=== PATIENT | female | born 1940 | race Caucasian/White ===

== ENCOUNTER 2017-05-23 16:27 | Inpatient (IN) ==
[2017-05-23] MEDS ORDERED: DOCUSATE SODIUM 100 MG CAPSULE PO PRN (16:46)
[2017-05-23] MEDS ORDERED: MORPHINE 2 MG/1 ML SYRINGE IV PRN (16:46)
[2017-05-23] MEDS ORDERED: BISACODYL 5 MG TABLET PO PRN (16:46)
[2017-05-23] MEDS ORDERED: ONDANSETRON 4 MG/2 ML VIAL IV PRN (16:46)
[2017-05-23] MEDS ORDERED: MAGNESIUM SULF RIDER 4 GM in PREMIX 1 EACH IV PRN (16:46)
[2017-05-23] MEDS ORDERED: MAGNESIUM SULF RIDER 2 GM in PREMIX 1 EACH IV PRN (16:46)
--- NOTE | 2017-05-23 19:54 | XRay Report ---
History: Shortness of breath Date: 05/23/2017 Study: Chest x-ray AP portable Comparison exam: No previous similar available There is cardiomegaly. There is a suspected moderate-sized hiatal hernia in the retrocardiac region. The pulmonary vasculature is slightly prominent. There is mild aortic arch calcification. There are some scattered emphysematous changes. There is no venkata consolidated pneumonia. There is an equivocal small left pleural effusion. A left subclavian dual-lead transvenous pacemaker is present. Impression: Cardiomegaly and borderline CHF appearance. Pacemaker PROCEDURE INTERPRETED AT [facility] DEPARTMENT OF RADIOLOGY Final Report Signed by: Dr. Shwetha Small
[2017-05-24 04:20] LABS: Apearance,Urine Slightly Hazy (Clear); Bacteria,Urine Few /HPF (Few); Bilirubin,Urine Negative (Negative); Blood, Urine Negative (Negative); Glucose,Urine (UA) Negative (Negative); Ketones,Urine Negative (Negative); Mucus,Urine Occasional /LPF (Occasional); Nitrite,Urine Positive (Negative); Protein,Urine Negative; RBC,Urine 3 /HPF (0-4); Squamous Epithelial Cell,Urine Occasional /HPF (0-10); Urine Color Yellow (Yellow); Urine Specific Gravity 1.006 (1.001-1.035); Urine Urobilinogen < 2.0 EU/DL (0.2-1.0); WBC,Urine 32 /HPF (0-6)
[2017-05-24 05:43] LABS: Basophils # 0.1 10*3/uL (0.0-0.2); Basophils % 0.8 % (0.0-0.8); Eosinophils # 0.1 10*3/uL (0.0-0.87); Eosinophils % 0.9 % (0.00-10.9); Hematocrit 39.5 VOL% (35.7-47.0); Hemoglobin 13.6 GM/DL (12.0-16.0); Immature Granulocytes % 0.8 %; Immature Granulocytes Absolute 0.06 #; Lymphocytes # 1.7 10*3/uL (1.4-4.0); Mean Corpuscular HGB Conc 34.4 GM/DL (32-36); Mean Corpuscular Hemoglobin 33 PG (27-34); Mean Corpuscular Volume 97.1 FL (87-102); Mean Platelet Volume 9.3 FL (9.6-12.0); Monocytes # 1.1 10*3/uL (0.11-0.8); Monocytes % 13.9 % (1.7-12.7); Neutrophils # 4.8 10*3/uL (1.4-7.4); Neutrophils % 61.6 % (38.7-73.9); Platelet Count 232 T/CUMM (130-400); Red Blood Count 4.07 MC/CUMM (3.8-5.5); Red Cell Distribution Width 13.4 % (9.3-17.3); White Blood Count 7.9 T/CUMM (4-12)
[2017-05-24 06:22] LABS: Albumin 2.9 G/DL (3.4-5.0); Bilirubin,Total 1.7 MG/DL (0.2-1.0); Calcium 8.6 MG/DL (8.5-10.1); Osmolality,Calculated 277.7 MOS/KG (273-304); Potassium 3.8 MMOL/L (3.5-5.1); Risk Ratio 2.83; Thyroid Stimulating Hormone 1.87 uIU/ml (0.358-3.74); Total Protein 6.1 G/DL (6.4-8.3); VLDL CHOLESTEROL 15.6 MG/DL
--- NOTE | 2017-05-24 08:43 | EKG Report ---
Stationary ECG Study [facility] Test Date: 05/24/2017 7:48:33 AM Pat Name: NYASIA VILLAGRAN Department: Room: 291 Gender: F Telegraphic Instrument Supervisor: ABI : 1940 Requested by: Helen Stevens Order Number: [id number] Reading MD: EVA BEAL Intervals [place] Rate: 124 P: 999 SC: 0 QRS: 56 QRSD: 78 T: -89 QT: 245 QTc: 318 Interpretive Statements ATRIAL FLUTTER/TACHYCARDIA WITH RAPID VENTRICULAR RESPONSE MARKED ST DEPRESSION, CONSIDER SUBENDOCARDIAL INJURY INTERPRETATION BASED ON A DEFAULT AGE OF 40 YEARS Electronically Signed On 05-24-17 17:07:51 CDT by EVA BEAL [email or web address]
[2017-05-24] MEDS ORDERED: DILTIAZEM 50 MG/10 ML VIAL IV ONE (08:44)
[2017-05-24] MEDS ORDERED: CIPROFLOXACIN 500 MG TABLET PO SCH (09:00)
[2017-05-24] MEDS ORDERED: DILTIAZEM INJ 100 MG in SODIUM CHLORIDE 0.9% 100 ML IV SCH (09:00)
[2017-05-24] MEDS ORDERED: ENOXAPARIN 80 MG/0.8 ML SYRINGE SUBCUT SCH (09:00)
[2017-05-24 09:42] LABS: INR 1.3; PT Patient Result 14.3 SECS
[2017-05-24] MEDS: PREGABALIN 25 MG CAPSULE PO SCH ×3 (09:43→20:43)
[2017-05-24] MEDS: PANTOPRAZOLE 40 MG TABLET PO SCH (09:44)
--- NOTE | 2017-05-24 09:53 | EKG Report ---
Stationary ECG Study [facility] Test Date: 05/24/2017 9:52:37 AM Pat Name: NYASIA VILLAGRAN Department: Room: 291 Gender: F Brands Editor: : 1940 Requested by: Helen Stevens Order Number: [id number] Reading MD: EVA BEAL Intervals [place] Rate: 125 P: 999 [place]: 0 QRS: 85 QRSD: 86 T: -88 QT: 238 QTc: 312 Interpretive Statements ATRIAL FLUTTER/TACHYCARDIA WITH RAPID VENTRICULAR RESPONSE ST DEVIATION AND MODERATE T-WAVE ABNORMALITY, CONSIDER LATERAL ISCHEMIA ST DEVIATION AND MODERATE T-WAVE ABNORMALITY, CONSIDER INFERIOR ISCHEMIA Electronically Signed On 05-24-17 17:10:45 CDT by EVA BEAL [id number]
[2017-05-24 10:13] LABS: Free T4 (Free Thyroxine) 1.45 NG/DL (0.76-1.46); Thyroid Stimulating Hormone 1.83 uIU/ml (0.358-3.74)
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
[2017-05-24] MEDS: NEOMYCIN LEFT EYE SCH ×3 (10:53→17:13)
[2017-05-24] MEDS: [UNRECOGNIZED DRUG - OTHER] LEFT EYE SCH ×3 (10:53→17:13)
[2017-05-24] MEDS: BACITRACIN LEFT EYE SCH ×3 (10:53→17:13)
[2017-05-24 11:00] LABS: Albumin 2.9 G/DL (3.4-5.0); Bilirubin,Direct 0.2 MG/DL (0.0-0.20); Bilirubin,Indirect 0.4 MG/DL (0.0-1.0); Bilirubin,Total 0.6 MG/DL (0.2-1.0); Total Protein 6.1 G/DL (6.4-8.3)
[2017-05-24] MEDS: SOTALOL 80 MG TABLET PO SCH ×2 (11:03→20:44)
[2017-05-24] MEDS: NITROFURANTOIN MACRO/MONO 100 MG CAPSULE PO SCH ×2 (11:04→20:44)
[2017-05-24] MEDS: DILTIAZEM CD 120 MG CAPSULE PO SCH ×2 (11:05→20:43)
[2017-05-24] MEDS: WARFARIN 7.5 MG TABLET PO SCH (17:12)
--- NOTE | 2017-05-24 17:15 | Pain Management Progress Note ---
Pain - Subjective Interval history: Ms Carrizales is 77 yo from [place] transferred for care of A Fib with rapid ventricular response. Consult: symptomatic post herpetic neuralgia Pt had shingles left side scalp & face 1 month ago. treated with antviral & pain medicine. Vesicles are healed. pt complains of severe burning pain. Pt had received Saltese 5 ~1 hour & Lyrica 25 mg ~15 min prior to my visit. Pain tolerable. Impression: Post herpetic neuralgia Plan: 1. continue Norco5 q4 hrs prn. 2. Continue Lyrica 25 mg tid. If pt tolerates Increase Lyrica to 50 mg tid 9 AM. 3. Will follow. Exam - Constitutional Vitals: Period Temp Pulse Resp BP Sys/Linn Pulse Ox Last 24 Hr 97.0 F-97.8 F 73-126 16-20 115-163/60-101 94-98 Results - Labs CBC & BMP: 05/24/17 05:06 05/24/17 05:06
[2017-05-24] MEDS: ACETAMINOPHEN 325 MG TABLET PO PRN (19:56)
[2017-05-24] MEDS: ENOXAPARIN 80 MG/0.8 ML SYRINGE SUBCUT SCH (20:42)
[2017-05-24] MEDS: ZALEPLON 5 MG CAPSULE PO PRN (20:43)
[2017-05-25] MEDS: [UNRECOGNIZED DRUG - OTHER] LEFT EYE SCH ×4 (00:51→18:25)
[2017-05-25] MEDS: NEOMYCIN LEFT EYE SCH ×4 (00:51→18:25)
[2017-05-25] MEDS: BACITRACIN LEFT EYE SCH ×4 (00:51→18:25)
[2017-05-25 04:12] LABS: Basophils % 0.4 % (0.0-0.8); Eosinophils # 0.1 10*3/uL (0.0-0.87); Eosinophils % 1.3 % (0.00-10.9); Hematocrit 38.9 VOL% (35.7-47.0); Hemoglobin 13.5 GM/DL (12.0-16.0); Immature Granulocytes % 0.9 %; Immature Granulocytes Absolute 0.06 #; Lymphocytes # 1.8 10*3/uL (1.4-4.0); Lymphocytes % 26.7 % (21.3-54.2); Mean Corpuscular HGB Conc 34.7 GM/DL (32-36); Mean Corpuscular Hemoglobin 33 PG (27-34); Mean Platelet Volume 9.1 FL (9.6-12.0); Monocytes # 0.9 10*3/uL (0.11-0.8); Monocytes % 13.8 % (1.7-12.7); Neutrophils # 3.9 10*3/uL (1.4-7.4); Neutrophils % 56.9 % (38.7-73.9); Platelet Count 224 T/CUMM (130-400); Red Blood Count 4.05 MC/CUMM (3.8-5.5); Red Cell Distribution Width 13.4 % (9.3-17.3); White Blood Count 6.8 T/CUMM (4-12)
[2017-05-25 04:40] LABS: INR 1.2; PT Patient Result 13.1 SECS
[2017-05-25 04:42] LABS: Calcium 8.5 MG/DL (8.5-10.1); Magnesium 2.4 MG/DL (1.8-2.4); Osmolality,Calculated 281.4 MOS/KG (273-304); Potassium 3.6 MMOL/L (3.5-5.1)
[2017-05-25] MEDS: ENOXAPARIN 80 MG/0.8 ML SYRINGE SUBCUT SCH ×2 (08:17→20:47)
--- NOTE | 2017-05-25 08:25 | EKG Report ---
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
[2017-05-25] MEDS: DILTIAZEM CD 120 MG CAPSULE PO SCH ×2 (09:11→20:47)
[2017-05-25] MEDS: PREGABALIN 25 MG CAPSULE PO SCH ×3 (09:11→20:48)
[2017-05-25] MEDS: SOTALOL 80 MG TABLET PO SCH ×2 (09:11→20:48)
[2017-05-25] MEDS: PANTOPRAZOLE 40 MG TABLET PO SCH (09:12)
[2017-05-25] MEDS: NITROFURANTOIN MACRO/MONO 100 MG CAPSULE PO SCH ×2 (09:12→20:47)
--- NOTE | 2017-05-25 10:35 | Cardiology Progress Note ---
Assessment and Plan (1) Atrial fibrillation with rapid ventricular response Status: Acute Assessment and plan: 77-year-old female, from [place]. History of symptomatic atrial fibrillation, atrial flutter, status post dual-chamber pacemaker implantation. She was transferred from [facility] by Dr. Gilmore, due to uncontrolled heart rate, symptomatic RVR. She is anticoagulated with Coumadin, she thinks her INRs were high recently but no documentation. -Continue sotalol 80 mg twice daily, Cardizem CD 120 mg twice daily. Still RVR , minimally symptomatic -Plan to proceed with EP study/ablation Saturday. Plan for general anesthesia, ANIA. -Daily EKG, lytes, keep on telemetry -Continue anticoagulation with Coumadin, LMW H bridging. Follow INR daily. -UTI. Continue nitrofurantoin, 3 day duration -Pain management consult appreciated, she was highly symptomatic from postherpetic neuralgia. Current Visit: Yes (2) Hypertension Status: Chronic Current Visit: Yes (3) Dyslipidemia Status: Chronic Current Visit: Yes (4) Postherpetic neuralgia Status: Acute Current Visit: Yes Cardiology - PN: Subj Interval history: She is still in atrial flutter, heart rate around 140 beats pain. No significant QTc prolongation or proarrhythmia with sotalol. Postherpetic neuralgia, followed by pain management Exam (Progress Note) - Constitutional Vitals: Period Temp Pulse Resp BP Sys/Linn Pulse Ox Last 24 Hr 97 F-97.7 F 76-123 16-20 122-162/77-92 95-98 General appearance: normal weight, over weight - Head Head exam: Present: normal inspection - Eye Eye exam: Absent: conjunctival injection, scleral icterus Pupils: Absent: dilated - ENT ENT exam: Present: normal external ear exam - Neck Neck exam: Present: normal inspection - Respiratory Respiratory exam: Present: clear to auscultation bilaterally. Absent: chest wall tenderness - Cardiovascular Cardiovascular exam: Present: systolic murmur, tachycardia. Absent: JVD - GI/Abdominal GI/Abdominal exam: Present: normal bowel sounds. Absent: distended - Extremities Exam Extremities exam: Present: normal inspection, normal capillary refill. Absent: edema - Back Exam Back exam: Present: normal inspection - Neurological Exam Neurological exam: Present: alert, oriented X3 - Psychiatric Psychiatric exam: Present: normal affect, normal mood - Skin Skin exam: Present: normal color, warm. Absent: cyanosis Result/EKG - Labs CBC & BMP: 05/25/17 03:53 05/25/17 03:53 Lab Results: I have reviewed the past 24 hour labs Labs: Laboratory Results - last 24 hr 05/24/17 05/25/17 05/25/17 05:05 03:53 03:53 WBC 6.8 RBC 4.05 Hgb 13.5 Hct 38.9 MCV 96.0 MCH 33 MCHC 34.7 RDW 13.4 Plt Count 224 MPV 9.1 L Neut % (Auto) 56.9 Lymph % (Auto) 26.7 [place] % (Auto) 13.8 H Eos % (Auto) 1.3 Baso % (Auto) 0.4 Neut # (Auto) 3.9 Lymph # (Auto) 1.8 [place] # (Auto) 0.9 H Eos # (Auto) 0.1 Baso # (Auto) 0.0 Immature Gran % 0.9 Nucleated RBC % 0.0 Immature Gran # 0.06 Nucleated RBCs # 0.00 Immature Plt Fraction 0.0 INR 1.2 PT Patient/Control Mix 13.1 Sodium Potassium Chloride Carbon Dioxide Anion Gap BUN Creatinine GFR Calculation BUN/Creatinine Ratio Glucose Calculated Osmolality Calcium Magnesium Total Bilirubin 0.60 Direct Bilirubin 0.200 Indirect Bilirubin 0.4 AST 59 H ALT 143 H Alkaline Phosphatase 136 H Total Protein 6.1 L Albumin 2.9 L 05/25/17 03:53 WBC RBC Hgb Hct MCV MCH MCHC RDW Plt Count MPV Neut % (Auto) Lymph % (Auto) [place] % (Auto) Eos % (Auto) Baso % (Auto) Neut # (Auto) Lymph # (Auto) [place] # (Auto) Eos # (Auto) Baso # (Auto) Immature Gran % Nucleated RBC % Immature Gran # Nucleated RBCs # Immature Plt Fraction INR PT Patient/Control Mix Sodium 140 Potassium 3.6 Chloride 104 Carbon Dioxide 31 Anion Gap 8.6 BUN 19 H Creatinine 0.70 GFR Calculation 85 BUN/Creatinine Ratio 27.00 H Glucose 121 H Calculated Osmolality 281.4 Calcium 8.5 Magnesium 2.4 Total Bilirubin Direct Bilirubin Indirect Bilirubin AST ALT Alkaline Phosphatase Total Protein Albumin - EKG EKG results: interpreted by me
[2017-05-25] MEDS: WARFARIN 7.5 MG TABLET PO SCH (17:22)
[2017-05-25] MEDS: ZALEPLON 5 MG CAPSULE PO PRN (20:48)
[2017-05-26] MEDS: BACITRACIN LEFT EYE SCH ×4 (00:25→17:43)
[2017-05-26] MEDS: NEOMYCIN LEFT EYE SCH ×4 (00:25→17:43)
[2017-05-26] MEDS: [UNRECOGNIZED DRUG - OTHER] LEFT EYE SCH ×4 (00:25→17:43)
[2017-05-26 04:53] LABS: Basophils # 0.1 10*3/uL (0.0-0.2); Basophils % 0.6 % (0.0-0.8); Eosinophils # 0.1 10*3/uL (0.0-0.87); Eosinophils % 0.9 % (0.00-10.9); Hematocrit 38.2 VOL% (35.7-47.0); Hemoglobin 13.1 GM/DL (12.0-16.0); Immature Granulocytes % 0.5 %; Immature Granulocytes Absolute 0.04 #; Lymphocytes # 2.2 10*3/uL (1.4-4.0); Lymphocytes % 26.5 % (21.3-54.2); Mean Corpuscular HGB Conc 34.3 GM/DL (32-36); Mean Corpuscular Hemoglobin 34 PG (27-34); Mean Corpuscular Volume 97.9 FL (87-102); Mean Platelet Volume 9.6 FL (9.6-12.0); Monocytes # 1.1 10*3/uL (0.11-0.8); Monocytes % 14.1 % (1.7-12.7); Neutrophils # 4.7 10*3/uL (1.4-7.4); Neutrophils % 57.4 % (38.7-73.9); Platelet Count 232 T/CUMM (130-400); Red Cell Distribution Width 13.7 % (9.3-17.3); White Blood Count 8.1 T/CUMM (4-12)
[2017-05-26 04:56] LABS: INR 1.8
[2017-05-26 05:16] LABS: Calcium 8.6 MG/DL (8.5-10.1); Magnesium 2.3 MG/DL (1.8-2.4); Osmolality,Calculated 279.4 MOS/KG (273-304); Potassium 3.5 MMOL/L (3.5-5.1)
--- NOTE | 2017-05-26 07:49 | EKG Report ---
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
[2017-05-26] MEDS: DILTIAZEM CD 120 MG CAPSULE PO SCH ×2 (09:20→21:05)
[2017-05-26] MEDS: SOTALOL 80 MG TABLET PO SCH ×2 (09:20→21:05)
[2017-05-26] MEDS: PREGABALIN 25 MG CAPSULE PO SCH ×3 (09:20→21:06)
[2017-05-26] MEDS: NITROFURANTOIN MACRO/MONO 100 MG CAPSULE PO SCH ×2 (09:20→21:06)
[2017-05-26] MEDS: ENOXAPARIN 80 MG/0.8 ML SYRINGE SUBCUT SCH ×2 (09:20→21:05)
[2017-05-26] MEDS: PANTOPRAZOLE 40 MG TABLET PO SCH (09:21)
--- NOTE | 2017-05-26 11:12 | Cardiology Progress Note ---
Assessment and Plan (1) Atrial fibrillation with rapid ventricular response Status: Acute Assessment and plan: 77-year-old female, from [place]. History of symptomatic atrial fibrillation, atrial flutter, status post dual-chamber pacemaker implantation. She was transferred from [facility] by Dr. Gilmore, due to uncontrolled heart rate, symptomatic RVR. She is anticoagulated with Coumadin, she thinks her INRs were high recently but no documentation. -Continue sotalol 80 mg twice daily, Cardizem CD 120 mg twice daily. Still RVR , minimally symptomatic. We will proceed with ANIA/flutter ablation tomorrow, under general anesthesia. -Daily EKG, lytes, keep on telemetry -Continue anticoagulation with Coumadin, LMW H bridging. Follow INR daily. -UTI. Continue nitrofurantoin, 3 day duration. Klebsiella UTI, sensitive -Pain management consult appreciated, she was highly symptomatic from postherpetic neuralgia. -Left eye drainage, continue ointment. If not resolving, we will get ophthalmology consult. She was apparently seen by somebody at [facility] Current Visit: Yes (2) Hypertension Status: Chronic Current Visit: Yes (3) Dyslipidemia Status: Chronic Current Visit: Yes (4) Postherpetic neuralgia Status: Acute Current Visit: Yes Cardiology - PN: Subj Interval history: She is feeling better. Has persistent drainage from her left eye. Heart rate still in the 110s. Normal QTC, Exam (Progress Note) - Constitutional Vitals: Period Temp Pulse Resp BP Sys/Linn Pulse Ox Last 24 Hr 97.4 F-98.3 F 77-124 16-20 117-155/63-84 93-98 General appearance: normal weight, over weight - Head Head exam: Present: normal inspection, normocephalic - Eye Eye exam: Absent: conjunctival injection, scleral icterus Pupils: Absent: dilated, irregular - ENT ENT exam: Present: normal external ear exam - Neck Neck exam: Present: normal inspection - Respiratory Respiratory exam: Present: clear to auscultation bilaterally. Absent: chest wall tenderness, decreased breath sounds - Cardiovascular Cardiovascular exam: Present: irregular rhythm, tachycardia. Absent: JVD - GI/Abdominal GI/Abdominal exam: Present: normal bowel sounds. Absent: distended - Extremities Exam Extremities exam: Present: normal inspection, normal capillary refill. Absent: edema - Back Exam Back exam: Present: normal inspection - Neurological Exam Neurological exam: Present: alert, oriented X3 - Psychiatric Psychiatric exam: Present: normal affect, normal mood - Skin Skin exam: Present: normal color, warm. Absent: cyanosis Result/EKG - Labs CBC & BMP: 05/26/17 04:09 05/26/17 04:09 Lab Results: I have reviewed the past 24 hour labs Labs: Laboratory Results - last 24 hr 05/26/17 05/26/17 05/26/17 04:09 04:09 04:09 WBC 8.1 RBC 3.90 Hgb 13.1 Hct 38.2 MCV 97.9 MCH 34 MCHC 34.3 RDW 13.7 Plt Count 232 MPV 9.6 Neut % (Auto) 57.4 Lymph % (Auto) 26.5 [place] % (Auto) 14.1 H Eos % (Auto) 0.9 Baso % (Auto) 0.6 Neut # (Auto) 4.7 Lymph # (Auto) 2.2 [place] # (Auto) 1.1 H Eos # (Auto) 0.1 Baso # (Auto) 0.1 Immature Gran % 0.5 Nucleated RBC % 0.0 Immature Gran # 0.04 Nucleated RBCs # 0.00 Immature Plt Fraction 0.0 INR 1.8 PT Patient/Control Mix 20.0 D Sodium 140 Potassium 3.5 Chloride 103 Carbon Dioxide 31 Anion Gap 9.5 BUN 11 Creatinine 0.80 GFR Calculation 73 BUN/Creatinine Ratio 13.00 Glucose 143 H Calculated Osmolality 279.4 Calcium 8.6 Magnesium 2.3 - EKG EKG results: interpreted by me
[2017-05-26] MEDS: WARFARIN 7.5 MG TABLET PO SCH (17:42)
[2017-05-26] MEDS: ACETAMINOPHEN 325 MG TABLET PO PRN (21:06)
[2017-05-26] MEDS: ZALEPLON 5 MG CAPSULE PO PRN (21:06)
[2017-05-27] MEDS: [UNRECOGNIZED DRUG - OTHER] LEFT EYE SCH ×4 (05:59→18:56)
[2017-05-27] MEDS: NEOMYCIN LEFT EYE SCH ×4 (05:59→18:56)
[2017-05-27] MEDS: BACITRACIN LEFT EYE SCH ×4 (05:59→18:56)
[2017-05-27 06:08] LABS: Basophils % 0.6 % (0.0-0.8); Eosinophils # 0.1 10*3/uL (0.0-0.87); Eosinophils % 1.4 % (0.00-10.9); Hematocrit 39.9 VOL% (35.7-47.0); Hemoglobin 13.8 GM/DL (12.0-16.0); Immature Granulocytes % 0.5 %; Immature Granulocytes Absolute 0.03 #; Lymphocytes # 2.5 10*3/uL (1.4-4.0); Lymphocytes % 39.4 % (21.3-54.2); Mean Corpuscular HGB Conc 34.6 GM/DL (32-36); Mean Corpuscular Hemoglobin 34 PG (27-34); Mean Corpuscular Volume 96.8 FL (87-102); Mean Platelet Volume 9.6 FL (9.6-12.0); Monocytes # 0.9 10*3/uL (0.11-0.8); Monocytes % 14.3 % (1.7-12.7); Neutrophils # 2.7 10*3/uL (1.4-7.4); Neutrophils % 43.8 % (38.7-73.9); Platelet Count 254 T/CUMM (130-400); Red Blood Count 4.12 MC/CUMM (3.8-5.5); Red Cell Distribution Width 13.5 % (9.3-17.3); White Blood Count 6.2 T/CUMM (4-12)
[2017-05-27 06:14] LABS: INR 2.9
[2017-05-27 06:20] LABS: INR 3.1
[2017-05-27 06:22] LABS: PT Patient Result 32.4 SECS; PT Patient Result 34.8 SECS
--- NOTE | 2017-05-27 06:23 | Pain Management Progress Note ---
Assessment and Plan (1) Postherpetic neuralgia Status: Acute Assessment and plan: Recommend to continue current medications for pain issues slowly get better if nothing helps a left-sided stellate ganglion block may be indicated to help with the severe pain Current Visit: Yes Pain - Subjective Interval history: Still complaining of pain in the IN in the scalp area. Patient is taking Tylenol and Lyrica which seems to be helping and slowly getting better Exam - Constitutional Vitals: Period Temp Pulse Resp BP Sys/Linn Pulse Ox Last 24 Hr 97.4 F-98.4 F 59-119 16-20 112-165/61-98 95-98 General appearance: mild distress - Head Head exam: Present: normal inspection - Eye Eye exam: Present: conjunctival injection (Left eye has some tenderness and photophobia) Pupils: Present: ALISON - ENT ENT exam: Present: normal exam Ear exam: Present: intact Mouth exam: Present: normal external inspection - Neck Neck exam: Present: normal inspection - Respiratory Respiratory exam: Present: clear to auscultation bilaterally - Cardiovascular Cardiovascular exam: Present: irregular rhythm. Absent: RRR - GI/Abdominal GI/Abdominal exam: Present: normal bowel sounds - Extremities Exam Extremities exam: Present: normal inspection - Back Exam Back exam: Present: normal inspection - Neurological Exam Neurological exam: Present: alert, oriented X3 - Skin Skin exam: Present: normal color Results - Labs CBC & BMP: 05/27/17 04:25 05/26/17 04:09 Lab Results: I have reviewed the past 24 hour labs
[2017-05-27 06:37] LABS: Calcium 8.6 MG/DL (8.5-10.1); Magnesium 2.3 MG/DL (1.8-2.4); Osmolality,Calculated 281.3 MOS/KG (273-304); Potassium 3.7 MMOL/L (3.5-5.1)
[2017-05-27 06:39] LABS: Calcium 8.7 MG/DL (8.5-10.1); Osmolality,Calculated 281.3 MOS/KG (273-304); Potassium 3.8 MMOL/L (3.5-5.1)
--- NOTE | 2017-05-27 07:20 | History and Physical Update ---
Sedation H&P Update - History and Physical H&P was reviewed, the patient examined and there: are no changes in the patients condition since last H&P was completed. - Dictation Physical: refer to H&P completed by admitting physician - Physical Exam Mental Status: alert and oriented Heart: other (tachy) Lung: clear to auscultation Abdomen: within normal limits Vitals: within normal limits - Sedation Plan for Sedation: other (ga by the anesthesia team) Patient Consent: Procedure disscussed with patient and patinet has consented., Risks and benefits were discussed with patient,including infection,, bleeding, injury to surrounding structures, seizure, temporary nerve, Patient understands and accepts potential risks/benefits and agrees to ASA Class: III Airway Assessment: Class III: Soft palate, base of uvula visible
[2017-05-27] MEDS ORDERED: MIDAZOLAM 2 MG/2 ML VIAL ONE ×2 (07:25→15:13)
[2017-05-27] MEDS ORDERED: fentaNYL 100 MCG/2 ML VIAL ONE ×2 (07:25→15:13)
[2017-05-27] MEDS ORDERED: ceFAZolin 1,000 MG VIAL ONE (08:16)
[2017-05-27] MEDS ORDERED: LIDOCAINE 1% 20 ML VIAL ONE (08:27)
[2017-05-27] MEDS ORDERED: HEPARIN/NACL 0.9% 2 UNITS/ML 500 ML IV ONE (08:27)
[2017-05-27] MEDS ORDERED: HEPARIN/NACL 0.9% 2 UNITS/ML 0 ML IV ONE (08:37)
[2017-05-27 08:50] LABS: Apearance,Urine Slightly Hazy (Clear); Bacteria,Urine Occasional /HPF (Few); Bilirubin,Urine Negative (Negative); Blood, Urine Negative (Negative); Glucose,Urine (UA) Negative (Negative); Ketones,Urine Negative (Negative); Mucus,Urine Occasional /LPF (Occasional); Nitrite,Urine Negative (Negative); Protein,Urine Negative; RBC,Urine 1 /HPF (0-4); Squamous Epithelial Cell,Urine Occasional /HPF (0-10); Urine Color Yellow (Yellow); Urine Specific Gravity 1.005 (1.001-1.035); Urine Urobilinogen < 2.0 EU/DL (0.2-1.0); WBC,Urine 1 /HPF (0-6)
[2017-05-27] MEDS ORDERED: PROPOFOL 200 MG/20 ML VIAL IV ONE (10:03)
[2017-05-27] MEDS ORDERED: PHENYLEPHRINE 1 MG/10 ML SYRINGE IV ONE (10:03)
[2017-05-27] MEDS ORDERED: LIDOCAINE 100 MG/5 ML SYRINGE ONE (10:03)
[2017-05-27] MEDS ORDERED: HEPARIN/NACL 0.9% 2 UNITS/ML 1,000 ML IV ONE (10:18)
[2017-05-27] MEDS ORDERED: ADENOSINE 90 MG/30 ML VIAL IV ONE (10:20)
[2017-05-27] MEDS ORDERED: ASPIRIN EC 325 MG TABLET PO ONE (10:47)
[2017-05-27] MEDS ORDERED: WARFARIN 4 MG TABLET PO SCH (10:50)
--- NOTE | 2017-05-27 11:13 | Electrophysiology Report ---
Date of Procedure:: 05/27/17 Pre-op diagnosis: AFl/RVR Post-op diagnosis: same Procedure: PROCEDURAL SUMMARY EP study with ablation of typical atrial flutter (cavotricuspid isthmus linear lesion). Successful procedure, no complications. DIAGNOSES Atrial flutter PROCEDURE REPORT A timeout was performed before the procedure. Anesthesia General anesthesia was provided by the anesthesia team. The patient was continuously monitored with ECG, pulse oximetry and NIBP. Anticoagulation The patient was taking Coumadin. The INR was 3.1 on the day of the procedure. IV 5000 units heparin was administered before the ablation. ANIA A transesophageal ultrasound was performed, to rule out intracardiac thrombi. See the dictated report separately. Briefly, no intracardiac thrombi were found Pacemaker interrogation and programming The Medtronic dual-chamber pacemaker was interrogated and programmed. The patient was in atrial flutter, 2-1 conduction, normal lead parameters. The pacemaker was set to VVI 40. Antibiotic prophylaxis Due to the presence of the pacemaker, 1 g IV Ancef was administered. Access The Seldinger technique was performed utilizing a 21 gauge micropuncture needle and 0.[address] the following sheaths. RFV: 9 Fr - Exchanged for SR0 long sheath - [employer] Smarttouch bidirectional ablation catheter. Right atrial, his, right ventricle pacing, recording, ablation RFV: 8 Fr - Exchanged for SR0 long sheath -decapolar CS catheter, then a duodecapolar Halo catheter. Right atrial, left atrial pacing and recording LFV: 9 Fr - Cartosound catheter Electrophysiologic Study - baseline Baseline ECG: typical atrial flutter, 2:1, RR 536 ms, QRS 89 ms, QT 301 ms. The catheters were introduced under fluoroscopic guidance. Care was taken to avoid the implanted pacemaker leads. The coronary sinus cannot be cannulated adequately, despite fluoroscopic, CARTO and electrical guidance. The His was marked. The proximal CS position was obtained transiently, and confirmed the [id number] atrial activation sequence. The CS catheter was then removed and a Halo catheter was introduced, adequate right atrial position was only achieved by using a long SR 0 sheath. This confirmed counterclockwise, typical atrial flutter, TCL 270 ms. The ablation catheter was placed into a low right atrial position and entrainment was performed. PPI 270 , TCL 268. HV 35 ms during atrial flutter. The arrhythmia mechanism was concluded as a typical right atrial counterclockwise flutter, and ablation was pursued. Ablation cavotricupid isthmus linear lesion Using fluoroscopic, electrical and CARTO 3D guidance, lesions were delivered in the CTI region to create a line of block, with 40W energy. Very low amplitude signals were noted throughout the CTI region. Ablation did not terminate the arrhythmia. The short sheath was then exchanged for an SR 0, but still, ablation in the CTI region did not terminate the arrhythmia. An ICE catheter was introduced and a tall rigde was found in the CTI region. The ICE was then used, to guide the ablation catheter behind this spot, further lesions were delivered, which terminated the flutter. Sinus bradycardia, with frequent multifocal PACs resumed. Follow up EP study, EP study during drug infusion The Halo catheter was used to confirm bidirectional block. Medial to lateral conduction delay 140 ms, lateral to medial conduction delay 140 ms. Follow up EP study, EP study during drug infusion Iv. adenosine was administered to confirm persistent block, during medial right atrial pacing. The CTI block persisted. AH 74, HV 35. AV Wb 440 ms. Conduction concentric, decremental. AVN ERP 600/370. No jump. VA Wb 290 ms. Conduction concentric, decremental. VERP 600/290. End of the procedure No pericardial effusion was noted with ICE. The catheters were removed and the sheaths were pulled. Manual compression was applied until hemostasis was achieved. There were no complications. Pacemaker interrogation and programming The Medtronic dual-chamber pacemaker was interrogated and programmed. Lead parameters remain stable. Mode was set to MVP R 60/110, partial plus, atrial ATP on. PROCEDURE(S) 1. Comprehensive electrophysiologic evaluation including insertion and repositioning of multiple electrode catheters with induction or attempted induction of an arrhythmia with right atrial pacing and recording, right ventricular pacing and recording (when necessary), His bundle recording (when necessary) with intracardiac catheter ablation of arrhythmogenic focus; with treatment of supraventricular tachycardia by ablation of fast or slow atrioventricular pathway, accessory atrioventricular connection, cavo-tricuspid isthmus or other single atrial focus or source of atrial re-entry 2. Programmed stimulation and pacing after intravenous drug infusion 3. Intracardiac electrophysiologic three-dimensional mapping 4. Intracardiac echo. 5. Dual-chamber pacemaker interrogation and programming, in person 6. Transesophageal echo Anesthesia: other (ga by the anesthesia team) Surgeon / Physician: John Tracy Local Coordinator: none Estimated blood loss: minimal Specimens: none sent Condition: stable Disposition: floor
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
--- NOTE | 2017-05-27 11:23 | EKG Report ---
Stationary ECG Study [facility] Test Date: 05/27/2017 11:25:28 AM Pat Name: NYASIA VILLAGRAN Department: Room: 291 Gender: F Rn Or Lpn: : 1940 Requested by: John Tracy Order Number: [id number] Reading MD: MIKE ACOSTA Intervals [place] Rate: 63 P: 135 [place]: 186 QRS: 43 QRSD: 91 T: 9 QT: 465 QTc: 473 Interpretive Statements SUPRAVENTRICULAR RHYTHM WITH OCCASIONAL VENTRICULAR PREMATURE COMPLEXES ELECTRONIC ATRIAL PACEMAKER INCOMPLETE RBBB Electronically Signed On 05-30-17 18:44:15 CDT by MIKE ACOSTA [email or web address]
--- NOTE | 2017-05-27 14:18 | EKG Report ---
Stationary ECG Study [facility] Test Date: 05/27/2017 2:20:14 PM Pat Name: NYASIA VILLAGRAN Department: Room: 291 Gender: F [employer] Director: ABI : 1940 Requested by: John Tracy Order Number: [id number] Reading MD: MIKE ACOSTA Intervals [place] Rate: 67 P: -87 [place]: 197 QRS: 64 QRSD: 92 T: 90 QT: 421 QTc: 437 Interpretive Statements ELECTRONIC ATRIAL PACEMAKER LOW QRS VOLTAGE IN PRECORDIAL LEADS INCOMPLETE RIGHT BUNDLE BRANCH BLOCK Electronically Signed On 05-30-17 18:48:44 CDT by MIKE ACOSTA [email or web address]
--- NOTE | 2017-05-27 14:40 | Anesthesia Post-Op ---
Anesthesia Post OP - Post Ansesthetic Evaluation Patient seen in post op: Yes Resp: within normal limits CV: within normal limits Mental: within normal limits Temp: within normal limits [id number]: within normal limits Nausea and Vomiting: within normal limits Pain: within normal limits
[2017-05-27] MEDS: PREGABALIN 25 MG CAPSULE PO SCH ×3 (15:06→21:19)
[2017-05-27] MEDS: DILTIAZEM CD 120 MG CAPSULE PO SCH ×2 (15:06→21:19)
[2017-05-27] MEDS: ENOXAPARIN 80 MG/0.8 ML SYRINGE SUBCUT SCH ×2 (15:06→21:20)
[2017-05-27] MEDS: PANTOPRAZOLE 40 MG TABLET PO SCH (15:07)
[2017-05-27] MEDS ORDERED: SEVOFLURANE 1 UNIT/15 MINUTE INH ONE (15:12)
[2017-05-27] MEDS: SOTALOL 80 MG TABLET PO SCH ×2 (15:22→21:19)
[2017-05-27] MEDS ORDERED: WARFARIN 3 MG TABLET PO ONE (21:00)
[2017-05-27] MEDS: ZALEPLON 5 MG CAPSULE PO PRN (21:19)
[2017-05-28] MEDS: BACITRACIN LEFT EYE SCH ×3 (00:31→13:07)
[2017-05-28] MEDS: [UNRECOGNIZED DRUG - OTHER] LEFT EYE SCH ×3 (00:31→13:07)
[2017-05-28] MEDS: NEOMYCIN LEFT EYE SCH ×3 (00:31→13:07)
[2017-05-28 05:29] LABS: Basophils % 0.3 % (0.0-0.8); Eosinophils # 0.1 10*3/uL (0.0-0.87); Hematocrit 33.7 VOL% (35.7-47.0); Hemoglobin 11.6 GM/DL (12.0-16.0); Immature Granulocytes % 0.4 %; Immature Granulocytes Absolute 0.04 #; Lymphocytes # 2.6 10*3/uL (1.4-4.0); Lymphocytes % 28.5 % (21.3-54.2); Mean Corpuscular HGB Conc 34.4 GM/DL (32-36); Mean Corpuscular Hemoglobin 34 PG (27-34); Mean Corpuscular Volume 98.5 FL (87-102); Mean Platelet Volume 9.7 FL (9.6-12.0); Monocytes # 1.4 10*3/uL (0.11-0.8); Neutrophils % 54.8 % (38.7-73.9); Platelet Count 201 T/CUMM (130-400); Red Blood Count 3.42 MC/CUMM (3.8-5.5); White Blood Count 9.1 T/CUMM (4-12)
[2017-05-28 05:38] LABS: INR 4.5
[2017-05-28 05:47] LABS: PT Patient Result 52.9 SECS
--- NOTE | 2017-05-28 06:04 | Pain Management Progress Note ---
Assessment and Plan (1) Postherpetic neuralgia Status: Acute Assessment and plan: Recommend to continue current medications for pain issues slowly get better if nothing helps a left-sided stellate ganglion block may be indicated to help with the severe pain 05/28 the patient is ready for discharge as far as pain management is concerned Current Visit: Yes Pain - Subjective Interval history: Patient reports that she is much better and is feeling much better and is ready for discharge today patient reports she lives in [place] and will not need a follow-up in outpatient pain clinic. Exam - Constitutional Vitals: Period Temp Pulse Resp BP Sys/Linn Pulse Ox Last 24 Hr 96.7 F-97.8 F 60-99 18-18 109-138/55-79 95-100 General appearance: no acute distress - Head Head exam: Present: normal inspection - Eye Eye exam: Present: EOMI Pupils: Present: ALISON - ENT ENT exam: Present: normal exam Ear exam: Present: intact Mouth exam: Present: normal external inspection - Neck Neck exam: Present: normal inspection - Respiratory Respiratory exam: Present: clear to auscultation bilaterally - Cardiovascular Cardiovascular exam: Present: RRR - GI/Abdominal GI/Abdominal exam: Present: normal bowel sounds - Extremities Exam Extremities exam: Present: normal inspection - Back Exam Back exam: Present: normal inspection - Neurological Exam Neurological exam: Present: alert, oriented X3 - Skin Skin exam: Present: normal color Results - Labs CBC & BMP: 05/28/17 04:14 05/27/17 04:25 Lab Results: I have reviewed the past 24 hour labs
[2017-05-28 06:15] LABS: Calcium 8.1 MG/DL (8.5-10.1); Osmolality,Calculated 278.3 MOS/KG (273-304); Potassium 2.9 MMOL/L (3.5-5.1)
[2017-05-28] MEDS ORDERED: ASPIRIN EC 81 MG TABLET PO SCH (09:00)
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
[2017-05-28] MEDS: PREGABALIN 25 MG CAPSULE PO SCH (10:00)
[2017-05-28] MEDS: DILTIAZEM CD 120 MG CAPSULE PO SCH (10:01)
[2017-05-28] MEDS: PANTOPRAZOLE 40 MG TABLET PO SCH (10:04)
[2017-05-28] MEDS: SOTALOL 80 MG TABLET PO SCH (10:06)
[2017-05-28] MEDS: ENOXAPARIN 80 MG/0.8 ML SYRINGE SUBCUT SCH (10:30)
[2017-05-28 11:41] VITALS: BP 139/60
== END 2017-05-28 14:30 | disposition home or self-care (01) | DRG 274 ==
LOC: N.TELEN 18:37
PROVIDERS: ADMIT Internal Medicine Clinical Cardiac Electrophysiology; ATTEND Internal Medicine Clinical Cardiac Electrophysiology
PROC: [UNRECOGNIZED PROCEDURE] (2017-05-27 08:15)